=== PATIENT | male | born 2000 | race Caucasian/White ===

== ENCOUNTER 2020-12-25 16:14 | Outpatient (CLI) | payer OTHER, SELFPAY ==
--- NOTE | ~2020-12-25 | XR_ITS ---
EXAMINATION: XR foot RT min 3V DATE: 12/25/2020 16:43 INDICATION: EXAMINATION: XR foot RT min 3V DATE: 12/25/2020 16:43 INDICATION: Internal and bruising at the lateral right foot TECHNIQUE: Dorsoplantar, two oblique and lateral views of the right foot were obtained. COMPARISON: None. FINDINGS: Likely positional plantar flexion of the foot at the ankle and dorsiflexion at the second-fifth metat arsophalangeal joints. No traumatic malalignment. No fracture. Joint spaces are normal. Tiny heteroto pic ossicle near the tip of the lateral malleolus likely sequela of chronic ankle sprain. Soft tissue s are unremarkable. No ankle joint effusion. IMPRESSION: 1. No acute osseous abnormality. TECHNIQUE: Dorsoplantar, two oblique and lateral views of the affected foot were obtained. COMPARISON: None. FINDINGS: IMPRESSION: 1. Reviewed, dictated and finalized at location B. IAC CATH TECH IMPRESSION: 1. No acute osseous abnormality. TECHNIQUE: Dorsoplantar, two oblique and lateral views of the affected foot we re obtained. COMPARISON: None. FINDINGS: IMPRESSION: 1.
== END 2020-12-25 16:15 | disposition home or self-care (01) ==
LOC: CHSIMG 16:17
PROVIDERS: PCP Nurse Practitioner Family; Visit Provider Nurse Practitioner Family
DX: M79.671 Pain in right foot (principal)
CPT/HCPCS: 73630